=== PATIENT | male | born 1955 | race Asian ===

== ENCOUNTER 2020-12-24 04:36 | Day surgery (SDC) | payer BC ==
[2020-12-22 12:13] VITALS: BMI 27.8
[2020-12-24 09:13] VITALS: TEMP 97.5
[2020-12-24 15:14] VITALS: BP 112/68; PULSE 63
== END 2020-12-24 10:30 | disposition home or self-care (01) ==
LOC: JASU-ENDO 04:36
PROVIDERS: ATTEND Internal Medicine Gastroenterology
PROC: 0DBK8ZX Excision of Ascending Colon, Via Natural or Artificial Opening Endoscopic, Diagnostic (ICD-10-PCS; principal; 2020-12-24 08:00)
DX: Z12.11 Encounter for screening for malignant neoplasm of colon (principal); D12.2 Benign neoplasm of ascending colon
CPT/HCPCS: 88305-TC

== ENCOUNTER 2022-02-24 04:32 | Day surgery (SDC) | payer BC ==
[2022-02-23 11:00] VITALS: BMI 27.6
[2022-02-24 10:18] VITALS: TEMP 97.7
[2022-02-24 11:01] VITALS: BP 123/78; PULSE 62; RESP 15
== END 2022-02-24 11:02 | disposition home or self-care (01) ==
LOC: JASU-ENDO 04:32
PROVIDERS: ATTEND Internal Medicine Gastroenterology
PROC: 0DB78ZX Excision of Stomach, Pylorus, Via Natural or Artificial Opening Endoscopic, Diagnostic (ICD-10-PCS; 2022-02-24)
PROC: 0DB68ZX Excision of Stomach, Via Natural or Artificial Opening Endoscopic, Diagnostic (ICD-10-PCS; principal; 2022-02-24 09:15)
DX: K63.89 Other specified diseases of intestine (principal); K29.50 Unspecified chronic gastritis without bleeding; E11.9 Type 2 diabetes mellitus without complications; Z79.84 Long term (current) use of oral hypoglycemic drugs
CPT/HCPCS: 82962; 88305-TC; 88342-TC